=== PATIENT | male | born 1970 | race Caucasian/White ===

== ENCOUNTER 2019-01-19 10:58 | Emergency (ER) | payer MEDICAID, OTHER ==
[~2019-01-19] VITALS: Ht 185.4 cm; Wt 90.7 kg
[2019-01-19 11:19] VITALS: BP 149/96
== END 2019-01-19 12:15 | disposition home or self-care (01) ==
LOC: ER 11:02
DX: H66.93 Otitis media, unspecified, bilateral (principal)